=== PATIENT | female | born 1990 | race Caucasian/White ===

== ENCOUNTER 2017-09-11 20:13 | Emergency (ER) ==
[2017-09-11 20:19] VITALS: BP 122/71; TEMP 97.7; BMI 26.5
[2017-09-11] MEDS ORDERED: BENADRYL IM STA (20:36)
--- NOTE | 2017-09-11 20:40 | ED.PDOC ---
General ED Provider: Dr. JENN SALINAS Chief Complaint: Non-specific Complaint Stated Complaint: Patient states she smoked a whole joint of Methamphetamine to night now feels anxious. Denies any any chest pain. States she is tingling all over. Time Seen by Physician: 20:38 Mode of Arrival: Walk-In Information Source: Patient Exam Limitations: No limitations Primary [facility] Nursing and Triage Documentation Reviewed and Agree: Yes Reviewed sepsis parameters & appropriate labs ordered?: Yes System Inflammatory Response Syndrome: Not Applicable Sepsis Protocol: For patient's 13 years and over: Temp is 96.8 and below OR 101 and greater Pulse >90 BPM Resp >20/minute Acutely Altered Mental Status Are patient's symptoms suggestive of a new infection, such as: -Pneumonia -Skin, Soft Tissue -Endocarditis -UTI -Bone, Joint Infection -Implantable Device -Acute Abdominal Infection -Wound Infection -Meningitis -Blood Stream Catheter Infection -Unknown System Inflammatory Response Syndrome: Not Applicable Review of Systems - Review Of Systems Constitutional: Reports: Diaphoresis, Weakness, Sweats Eyes: Reports: No symptoms Ears, Nose, Mouth, Throat: Reports: No symptoms Respiratory: Reports: No symptoms Cardiac: Reports: Chest pain GI: Reports: Nausea : Reports: No symptoms Musculoskeletal: Reports: No symptoms Skin: Reports: No symptoms Neurological: Reports: Anxiety, Emotional problems, Headache, Numbness Endocrine: Reports: No symptoms Hematologic/Lymphatic: Reports: No symptoms All Other Systems: Reviewed and Negative Past Medical History - Past Medical History Previously Healthy: Yes Endocrine: Reports: None Cardiovascular: Reports: None Respiratory: Reports: None Hematological: Reports: None Gastrointestinal: Reports: None Genitourinary: Reports: None Neuro/Psych: Reports: None Musculoskeletal: Reports: None Cancer: Reports: None Last Menstrual Period: [id number] - Surgical History General Surgical History: Reports: (x2 ), Appendectomy, Orthopedic (- LT ANKLE SURG) - Family History Family History: Reports: Unknown - Social History Smoking Status: Current every day smoker, Heavy tobacco smoker Hx Substance Use: Yes (METH) Alcohol Screening: None - Immunizations Tetanus Shot up to Date: No Physical Exam - Physical Exam Appearance: Ill-appearing Ill-appearing: Moderate Eyes: JEREMIE, EOMI, Conjunctiva clear ENT: Ears normal, Nose normal, Oropharynx normal Respiratory: Airway patent, Breath sounds clear, Breath sounds equal, Respirations nonlabored Cardiovascular: Tachycardia GI/: Soft, Nontender, No masses, Bowel sounds normal, No Organomegaly Musculoskeletal: Normal strength, ROM intact, No edema, No calf tenderness Skin: Warm, Dry, Normal color Neurological: Sensation intact, Motor intact, Reflexes intact, Cranial nerves intact, Alert, Oriented Psychiatric: Anxious Interpretation - EKG Interpretation Time of EKG #1: 21:34 Rate: Tachy Rhythm: Sinus Ectopy: None [place]: NL ST Segment: Normal Interpretation: sinus tachy Critical Care Note - Critical Care Note Total Time (mins): 0 Course - Course Hematology/Chemistry: 09/11/17 21:22 09/11/17 21:22 Orders, Labs, Meds: Lab Review 09/11/17 09/11/17 09/11/17 21:22 21:22 21:37 WBC 15.68 H RBC 4.26 Hgb 12.7 Hct 35.9 L MCV 84.3 MCH 29.8 MCHC 35.4 RDW Coeff of Sandro 13.4 Plt Count 416 Immature Gran % (Auto) 0.4 Neut % (Auto) 81.7 Lymph % (Auto) 9.4 L [place] % (Auto) 7.5 Eos % (Auto) 0.4 Baso % (Auto) 0.6 Immature Gran # (Auto) 0.1 Neut # 12.8 H Lymph # 1.5 [place] # 1.2 Eos # 0.1 Baso # 0.1 Sodium 140 Potassium 3.4 L Chloride 106 Carbon Dioxide 22 Anion Gap 15.4 BUN 15 Creatinine 0.92 Estimated GFR (MDRD) 73.00 BUN/Creatinine Ratio 16.30 Glucose 107 Calcium 10.1 Total Bilirubin 0.7 AST 21 ALT 18 Alkaline Phosphatase 59 Total Creatine Kinase 521 CK-MB (CK-2) 3.5 CK-MB (CK-2) % 0.52853 Troponin I < 0.0100 Total Protein 7.5 Albumin 4.0 Globulin 3.5 Albumin/Globulin Ratio 1.14 Urine Opiates Screen Negative Ur Oxycodone Screen Negative Urine Methadone Screen Negative Ur Propoxyphene Screen Negative Ur Barbiturates Screen Negative U Tricyclic Antidepress Negative Ur Phencyclidine Scrn Negative Ur Amphetamine Screen Positive U Methamphetamines Scrn Negative U Benzodiazepines Scrn Negative Urine Cocaine Screen Negative U Cannabinoids Screen Positive Orders Category Date Time Status EKG-(ED ONLY) Stat CARDIO 09/11/17 21:13 Completed CBC W/ AUTO DIFF Stat LAB 09/11/17 21:22 Completed COMPREHENSIVE METABOLIC PANEL Stat LAB 09/11/17 21:22 Completed CREATINE KINASE Stat LAB 09/11/17 21:22 Completed DRUG SCREEN, URINE, RAPID Stat LAB 09/11/17 21:37 Completed TROPONIN I Stat LAB 09/11/17 21:22 Completed Diphenhydramine Inj [Benadryl] MEDS 09/11/17 20:36 Discontinued 50 mg IM ONCE STA CHEST, 1V AP ONLY Stat RADS 09/11/17 21:13 Taken Medications Discontinued Medications Generic Name Dose Route Start Last Admin Trade Name Freq PRN Reason Stop Dose Admin Diphenhydramine HCl 50 mg 09/11/17 20:36 09/11/17 21:10 Benadryl IM 09/11/17 20:37 50 mg ONCE STA Administration Vital Signs: Temp Pulse Resp BP Pulse Ox 09/11/17 20:14 97.7 F 119 H 18 122/71 99 Departure - Departure Time of Disposition: 22:08 Disposition: ADMITTED INPATIENT Discharge Problem: Drug abuse, amphetamine type Instructions: Methamphetamine Abuse (ED), Polysubstance Abuse (ED) Condition: Stable Pt referred to PMD for follow-up: Yes IPMP verified?: No Additional Instructions: Stop using Drugs Take Atarax as needed for agitation and anxiety Prescriptions: Hydroxyzine HCl [Atarax] 25 mg PO TID PRN #25 tablet PRN Reason: Agitation Allergies/Adverse Reactions: Allergies morphine Allergy (Severe, Verified 09/11/17 21:38) lowered body temp Patient to notify drugstore Home Medications: Ambulatory Orders Hydroxyzine HCl [Atarax] 25 mg PO TID PRN #25 tablet 09/11/17 Disposition Discussed With: Patient, Family
--- NOTE | 2017-09-12 07:15 | DI ---
EXAM: Single AP view of the chest HISTORY: Chest pain. COMPARISON: Chest x-ray 01/11/2013 FINDINGS: Cardiomediastinal silhouette is unremarkable. There is no pneumothorax or pleural effusion . There is no consolidation, nodule or mass. The osseous structures are unremarkable. IMPRESSION: No acute cardiopulmonary process.
== END 2017-09-11 22:30 | disposition other institution (70) ==
LOC: ED 20:13
DX: F15.10 Other stimulant abuse, uncomplicated (principal); R07.9 Chest pain, unspecified; R53.1 Weakness; F41.9 Anxiety disorder, unspecified; F17.210 Nicotine dependence, cigarettes, uncomplicated
CPT/HCPCS: 36415; 80053; 80306; 82550; 82553; 84484; 85025; 93005; 93010; 96372; 99284

== ENCOUNTER 2017-09-14 20:36 | Emergency (ER) ==
[2017-09-14 20:37] VITALS: BMI 26.5
[2017-09-14 20:43] VITALS: BP 143/91; TEMP 98.5
[2017-09-14] MEDS ORDERED: TETRACAINE 0.5% UNIT-DOSE OP STA (20:48)
[2017-09-14] MEDS ORDERED: FLUORETS OP STA (20:48)
[2017-09-14] MEDS ORDERED: EYE-STREAM OP STA (20:48)
--- NOTE | 2017-09-14 20:51 | ED.PDOC ---
General ED Provider: Dr. JENN SALINAS Chief Complaint: Eye Problem Stated Complaint: Patient is a 27 year old female who comes to the ER with Right eye pain and itching. has been rubbing it and has caused it to be red and inflamed. Does not feel like there is a foreign body in it. Time Seen by Physician: 20:49 Mode of Arrival: Walk-In Information Source: Patient [facility] Care [facility] and Triage Documentation Reviewed and Agree: Yes Reviewed sepsis parameters & appropriate labs ordered?: No System Inflammatory Response Syndrome: Not Applicable Sepsis Protocol: For patient's 13 years and over: Temp is 96.8 and below OR 101 and greater Pulse >90 BPM Resp >20/minute Acutely Altered Mental Status Are patient's symptoms suggestive of a new infection, such as: -Pneumonia -Skin, Soft Tissue -Endocarditis -UTI -Bone, Joint Infection -Implantable Device -Acute Abdominal Infection -Wound Infection -Meningitis -Blood Stream Catheter Infection -Unknown System Inflammatory Response Syndrome: Not Applicable EENT Complaint Exam - Eye Complaint/Exam Onset/Duration: 20 min ago. Symptoms Are: Still present Timing: Constant Initial Severity: Moderate Current Severity: Moderate Location: Right Character: Reports: Dull, Throbbing Alleviating: Reports: None Associated Signs and Symptoms: Reports: Photophobia, Clear drainage Related History: Denies: Similar episode, Foreign body, Trauma, Glaucoma, Environmental, Meds used, Drops used Penetrating Injury Risk Factors: None Globe Rupture Risk Factors: None Acute Glaucoma Risk Factors: None Optic Artery Occlusion Risk Factors: None Visual Acuity Right Eye: 20/50 Visual Acuity Left Eye: 20/50 Visual Field: Normal Extraocular Movement: Normal Orbit Findings: Normal Globe Findings: Intact Lid Findings: Erythema Conjunctival Findings: Red Corneal Findings: Clear Fluorescein Uptake: No Fundi: Normal Slit Lamp Used: No Differential Diagnoses: Conjunctivitis Review of Systems - Review Of Systems Constitutional: Reports: No symptoms Ears, Nose, Mouth, Throat: Reports: Ear pain, Ear discharge Skin: Reports: Lesions Neurological: Reports: Anxiety All Other Systems: Reviewed and Negative Past Medical History - Past Medical History Previously Healthy: Yes Endocrine: Reports: None Cardiovascular: Reports: None Respiratory: Reports: None Hematological: Reports: None Gastrointestinal: Reports: None Genitourinary: Reports: None Neuro/Psych: Reports: None Musculoskeletal: Reports: None Cancer: Reports: None Last Menstrual Period: 09/05/17 - Surgical History General Surgical History: Reports: (x2 ), Appendectomy, Orthopedic (- LT ANKLE SURG) - Family History Family History: Reports: Unknown - Social History Smoking Status: Current every day smoker, Heavy tobacco smoker Hx Substance Use: Yes (METH) Alcohol Screening: None - Immunizations Tetanus Shot up to Date: No Physical Exam - Physical Exam Appearance: Ill-appearing, Well-nourished Ill-appearing: Mild Pain Distress: Moderate Eyes: JEREMIE, EOMI, Conjunctiva inflammed ENT: Oropharynx normal Respiratory: Airway patent, Breath sounds clear Skin: Warm Neurological: Sensation intact, Motor intact, Alert, Oriented Psychiatric: Anxious Critical Care Note - Critical Care Note Total Time (mins): 0 Course - Course Orders, Labs, Meds: Orders Category Date Time Status Balanced Salt Solution [Eye-Stream] MEDS 09/14/17 20:48 Stat 1 bottle OP ONCE STA Fluorescein Sodium [Fluorets] MEDS 09/14/17 20:48 Stat 1 strip OP ONCE STA Tetracaine HCl/Pf [Tetracaine 0.5% Unit-Dose] MEDS 09/14/17 20:48 Stat 2 drop OP ONCE STA Medications Discontinued Medications Generic Name Dose Route Start Last Admin Trade Name Freq PRN Reason Stop Dose Admin Eye Irrigation Solution 1 bottle 09/14/17 20:48 Eye-Stream OP 09/14/17 20:49 ONCE STA Fluorescein Sodium 1 strip 09/14/17 20:48 Fluorets OP 09/14/17 20:49 ONCE STA Tetracaine HCl 2 drop 09/14/17 20:48 Tetracaine 0.5% Unit-Dose OP 09/14/17 20:49 ONCE STA Vital Signs: Temp Pulse Resp BP Pulse Ox 09/14/17 20:37 98.5 F 119 H 20 143/91 H 97 Departure - Departure Time of Disposition: 21:22 Disposition: HOME SELF-CARE Discharge Problem: Conjunctivitis of right eye Qualifiers: Conjunctivitis type: acute Acute conjunctivitis type: unspecified Qualified Code(s): H10.31 - Unspecified acute conjunctivitis, right eye Instructions: Conjunctivitis (ED) Condition: Stable Pt referred to PMD for follow-up: Yes IPMP verified?: No Additional Instructions: Use eye ointment to the right eye Three times a day Follow up with PCP in 3 days Allergies/Adverse Reactions: Allergies morphine Allergy (Severe, Verified 09/14/17 20:39) lowered body temp Patient to notify drugstore Home Medications: Ambulatory Orders Hydroxyzine HCl [Atarax] 25 mg PO TID PRN #25 tablet 09/11/17 Disposition Discussed With: Patient, Family
[2017-09-14] MEDS ORDERED: NEO-POLYCIN OPTH OINT OP STA (21:07)
== END 2017-09-14 21:30 | disposition home or self-care (01) ==
LOC: ED 20:36
DX: H10.31 Unspecified acute conjunctivitis, right eye (principal)
CPT/HCPCS: 99282

== ENCOUNTER 2018-02-03 03:10 | Emergency (ER) ==
[2018-02-03 03:21] VITALS: BP 153/75; TEMP 98.6; BMI 26.3
[2018-02-03] MEDS ORDERED: EYE-STREAM OP STA (03:25)
[2018-02-03] MEDS ORDERED: TETRACAINE 0.5% UNIT-DOSE OP STA (03:25)
[2018-02-03] MEDS ORDERED: FLUORETS OP STA (03:25)
[2018-02-03] MEDS ORDERED: MOTRIN PO STA (03:42)
--- NOTE | 2018-02-03 03:47 | ED.PDOC ---
General ED Provider: Dr. JENN SALINAS Chief Complaint: Eye Problem Stated Complaint: Pateint states that a toy box fell on to her left periobital and nose bridge 1 hour ago. She had minor nose bleed that has stopped. Denies any loss of conciousness. Time Seen by Physician: 03:45 Mode of Arrival: Walk-In Information Source: Patient Exam Limitations: No limitations [facility] and T[facility] Documentation Reviewed and Agree: Yes Does patient meet sepsis criteria?: No System Inflammatory Response Syndrome: Not Applicable Sepsis Protocol: For patient's 13 years and over: Temp is 96.8 and below OR 101 and greater Pulse >90 BPM Resp >20/minute Acutely Altered Mental Status Are patient's symptoms suggestive of a new infection, such as: -Pneumonia -Skin, Soft Tissue -Endocarditis -UTI -Bone, Joint Infection -Implantable Device -Acute Abdominal Infection -Wound Infection -Meningitis -Blood Stream Catheter Infection -Unknown Trauma/Injury Complaint Exam - Facial Injury Complaint/Exam Location of Pain: Reports: Left, Cheek Mechanism of Injury: Reports: Trauma Onset/Duration: 1 hour ago Symptoms Are: Still present Onset of Pain: Reports: Immediate Initial Severity: Severe Current Severity: Moderate Location: Reports: Discrete (Left lower periobital area and bridge of nose ) Character: Reports: Aching, Throbbing Alleviating: Reports: None Aggravating: Reports: None Associated Signs and Symptoms: Reports: Swelling (mild ), Bruising Related History: Denies: Similar episode, Occupational injury, Recent dental work Related Surgical History: Reports: None Facial Findings: Present: Swelling Face Picture: 1 - contusion Differential Diagnoses: Contusion Review of Systems - Review Of Systems Constitutional: Reports: No symptoms Eyes: Reports: No symptoms Ears, Nose, Mouth, Throat: Reports: Epistaxis Respiratory: Reports: No symptoms Cardiac: Reports: No symptoms GI: Reports: No symptoms : Reports: No symptoms Musculoskeletal: Reports: No symptoms Skin: Reports: Bruising (on left face ) Neurological: Reports: No symptoms Endocrine: Reports: No symptoms Hematologic/Lymphatic: Reports: No symptoms All Other Systems: Reviewed and Negative Past Medical History - Past Medical History Previously Healthy: Yes Endocrine: Reports: None Cardiovascular: Reports: None Respiratory: Reports: None Hematological: Reports: None Gastrointestinal: Reports: None Genitourinary: Reports: None Neuro/Psych: Reports: None Musculoskeletal: Reports: None Cancer: Reports: None Last Menstrual Period: END OF DECEMBER - Surgical History General Surgical History: Reports: (x2 ), Appendectomy, Orthopedic (- LT ANKLE SURG) - Family History Family History: Reports: Unknown - Social History Smoking Status: Current every day smoker, Light tobacco smoker Hx Substance Use: Yes (METH) Alcohol Screening: None - Immunizations Tetanus Shot up to Date: Yes Physical Exam - Physical Exam Appearance: Well-appearing Pain Distress: Moderate Eyes: JEREMIE, EOMI ENT: Nose normal (with minor contusion and swelling ), Epistaxis (Dried blood ) Neck: Supple Respiratory: Airway patent, Breath sounds clear, Breath sounds equal, Respirations nonlabored Cardiovascular: Pulses normal, No rub, No murmur, Tachycardia Skin: Warm, Dry, Normal color Neurological: Cranial nerves intact, Alert, Oriented Psychiatric: Anxious Critical Care Note - Critical Care Note Total Time (mins): 0 Course - Course Orders, Labs, Meds: Orders Category Date Time Status Ice [ED APPLY ICE AFFECTED AREA] .ONCE EMERGENCY 02/03/18 03:43 Ordered Ibuprofen [Motrin] MEDS 02/03/18 03:42 Stat 800 mg PO ONCE STA Medications Discontinued Medications Generic Name Dose Route Start Last Admin Trade Name Freq PRN Reason Stop Dose Admin Ibuprofen 800 mg 02/03/18 03:42 Motrin PO 02/03/18 03:43 ONCE STA Vital Signs: Temp Pulse Resp BP Pulse Ox 02/03/18 03:12 98.6 F 114 H 20 153/75 H 98 Departure - Departure Time of Disposition: 03:47 Disposition: HOME SELF-CARE Discharge Problem: Contusion, Contusion of nose, initial encounter, Anterior epistaxis Instructions: Contusion in Adults (ED), Black Eye (ED) Condition: Stable Pt referred to PMD for follow-up: Yes IPMP verified?: No Additional Instructions: Take Motrin or Tylenol as needed for pain use ICE pace intermittently for 30 min at a time 4 times a day for swelling Prescriptions: Ibuprofen [Motrin] 600 mg PO Q6H PRN #20 tablet PRN Reason: Analgesia Allergies/Adverse Reactions: Allergies morphine Allergy (Severe, Verified 02/03/18 03:21) lowered body temp Patient to notify drugstore Home Medications: Ambulatory Orders Ibuprofen [Motrin] 600 mg PO Q6H PRN #20 tablet 02/03/18
== END 2018-02-03 04:00 | disposition home or self-care (01) ==
LOC: ED 03:10
DX: S00.33XA Contusion of nose, initial encounter (principal); S05.12XA Contusion of eyeball and orbital tissues, left eye, initial encounter; R04.0 Epistaxis; W22.8XXA Striking against or struck by other objects, initial encounter
CPT/HCPCS: 99282

== ENCOUNTER 2018-07-16 13:08 | Emergency (ER) ==
[2018-07-16 13:12] VITALS: BP 115/76; TEMP 98; BMI 27.5
--- NOTE | 2018-07-16 13:27 | ED.PDOC ---
General ED Provider: Dr. MOI LEWIS Chief Complaint: Tooth Problem Stated Complaint: dental pain , sore throay ear pain right side Time Seen by Physician: 13:19 (seen with ismael at all times ) Mode of Arrival: Walk-In Information Source: Patient Exam Limitations: No limitations [facility] Nursing and Triage Documentation Reviewed and Agree: Yes Does patient meet sepsis criteria?: No If yes, has appropriate treatment been initiated?: No System Inflammatory Response Syndrome: Not Applicable Sepsis Protocol: For patient's 13 years and over: Temp is 96.8 and below OR 101 and greater Pulse >90 BPM Resp >20/minute Acutely Altered Mental Status Are patient's symptoms suggestive of a new infection, such as: -Pneumonia -Skin, Soft Tissue -Endocarditis -UTI -Bone, Joint Infection -Implantable Device -Acute Abdominal Infection -Wound Infection -Meningitis -Blood Stream Catheter Infection -Unknown EENT Complaint Exam - Dental/Oral Complaint/Exam Mechanism of Injury: Unknown Onset/Duration: 1 day Symptoms Are: Still present Timing: Constant Initial Severity: Moderate Current Severity: Moderate Character: Reports: Aching, Throbbing Aggravating: Reports: None Alleviating: Reports: None Associated Signs and Symptoms: Denies: Swelling, Discharge, Fever, Foul odor, Foul taste in mouth Related History: Reports: Similar episode Cardiac Risk Factors: Reports: None Dental/Oral Surgical History: Reports: None Tooth Findings: Present: Gross caries (emerging wisdom tooth righ isded ) Cervical Lymphadenopathy Present: No Facial Swelling Present: No Bleeding Present: No Oropharynx Findings: Absent: Clots, Active bleeding Septal Hematoma: No Foreign Body Present: No Dysphagia Present: No Drooling Present: No Asymmetrical Tonsillar Swelling Present: No Uvula Midline: Yes Milli-tonsillar Fluctuence: No Trismus Present: No Palatal Petechiae Present: No Scarlatinaform Rash Present: No Lesions: Absent: Lip, Gums, Tongue, Buccal Mucosa, Pharynx Exanthem: Absent: Lip, Gums, Tongue, Buccal Mucosa, Pharynx Vesicles: Absent: Lip, Gums, Tongue, Buccal Mucosa, Pharynx Differential Diagnoses: Dental Caries, Other (wisdom tooth) Review of Systems - Review Of Systems Constitutional: Reports: No symptoms Eyes: Reports: No symptoms Ears, Nose, Mouth, Throat: Reports: Ear pain (right ), Throat pain Respiratory: Reports: No symptoms Cardiac: Reports: No symptoms GI: Reports: No symptoms : Reports: No symptoms Musculoskeletal: Reports: No symptoms Skin: Reports: No symptoms Neurological: Reports: No symptoms Endocrine: Reports: No symptoms Hematologic/Lymphatic: Reports: No symptoms All Other Systems: Reviewed and Negative Past Medical History - Past Medical History Previously Healthy: Yes Endocrine: Reports: None Cardiovascular: Reports: None Respiratory: Reports: None Hematological: Reports: None Gastrointestinal: Reports: None Genitourinary: Reports: None Neuro/Psych: Reports: None Musculoskeletal: Reports: None Cancer: Reports: None Last Menstrual Period: 3 weeks - Surgical History General Surgical History: Reports: (x2 ), Appendectomy, Orthopedic (- LT ANKLE SURG) - Family History Family History: Reports: Unknown - Social History Smoking Status: Current every day smoker, Light tobacco smoker Hx Substance Use: Yes (METH) Alcohol Screening: None Physical Exam - Physical Exam Appearance: Well-appearing, No pain distress, Well-nourished Eyes: JEREMIE, EOMI, Conjunctiva clear ENT: Ears normal, Nose normal, Oropharynx normal Respiratory: Airway patent, Breath sounds clear, Breath sounds equal, Respirations nonlabored Cardiovascular: RRR, Pulses normal, No rub, No murmur GI/: Soft, Nontender, No masses, Bowel sounds normal, No Organomegaly Musculoskeletal: Normal strength, ROM intact, No edema, No calf tenderness Skin: Warm, Dry, Normal color Neurological: Sensation intact, Motor intact, Reflexes intact, Cranial nerves intact, Alert, Oriented Psychiatric: Affect appropriate, Mood appropriate Critical Care Note - Critical Care Note Total Time (mins): 0 Course - Course Vital Signs: Temp Pulse Resp BP Pulse Ox 07/16/18 13:09 98.0 F 100 H 20 115/76 98 Departure - Departure Time of Disposition: 13:27 Disposition: HOME SELF-CARE Discharge Problem: Toothache, Pain, dental Instructions: Earache (ED) Condition: Good Pt referred to PMD for follow-up: Yes IPMP verified?: No Additional Instructions: Please call your Family Physician as soon as possible to schedule a follow-up appointment. Allergies/Adverse Reactions: Allergies morphine Allergy (Severe, Verified 07/16/18 13:13) lowered body temp Patient to notify drugstore Home Medications: Ambulatory Orders 1 [No Reported Medications] 07/16/18
== END 2018-07-16 13:36 | disposition home or self-care (01) ==
LOC: ED 13:08
DX: K08.89 Other specified disorders of teeth and supporting structures (principal); K02.7 Dental root caries; H92.01 Otalgia, right ear; J02.9 Acute pharyngitis, unspecified; F17.210 Nicotine dependence, cigarettes, uncomplicated
CPT/HCPCS: 99282

== ENCOUNTER 2018-09-15 23:28 | Emergency (ER) ==
[2018-09-15 23:39] VITALS: TEMP 99.2; BMI 26.5
--- NOTE | 2018-09-16 00:02 | ED.PDOC ---
General ED Provider: Dr. MANGO MANZO Chief Complaint: Non-specific Complaint Stated Complaint: concern about glass chip in drinking watyer from glass Time Seen by Physician: 01:15 Mode of Arrival: Walk-In Information Source: Patient Exam Limitations: No limitations Primary Care Provider: ROYA SANTILLAN Nursing and Triage Documentation Reviewed and Agree: Yes Does patient meet sepsis criteria?: No System Inflammatory Response Syndrome: Not Applicable Sepsis Protocol: For patient's 13 years and over: Temp is 96.8 and below OR 101 and greater Pulse >90 BPM Resp >20/minute Acutely Altered Mental Status Are patient's symptoms suggestive of a new infection, such as: -Pneumonia -Skin, Soft Tissue -Endocarditis -UTI -Bone, Joint Infection -Implantable Device -Acute Abdominal Infection -Wound Infection -Meningitis -Blood Stream Catheter Infection -Unknown GI Complaint Exam - Abdominal Pain Complaint/Exam Duration: tonight Symptoms Are: Resolved Timing: Intermittent Initial Severity: Mild Current Severity: Mild Character: Reports: Unable to describe Aggravating: Reports: Food Alleviating: Reports: Rest Associated Signs and Symptoms: Reports: Sore throat Review of Systems - Review Of Systems Constitutional: Reports: No symptoms Eyes: Reports: No symptoms Ears, Nose, Mouth, Throat: Reports: No symptoms Respiratory: Reports: No symptoms Cardiac: Reports: No symptoms GI: Reports: No symptoms : Reports: No symptoms Musculoskeletal: Reports: No symptoms Skin: Reports: No symptoms Neurological: Reports: No symptoms Endocrine: Reports: No symptoms Hematologic/Lymphatic: Reports: No symptoms All Other Systems: Reviewed and Negative Past Medical History - Past Medical History Previously Healthy: Yes Endocrine: Reports: None Cardiovascular: Reports: None Respiratory: Reports: None Hematological: Reports: None Gastrointestinal: Reports: None Genitourinary: Reports: None Neuro/Psych: Reports: None Musculoskeletal: Reports: None Cancer: Reports: None Last Menstrual Period: now - Surgical History General Surgical History: Reports: (x2 ), Appendectomy, Orthopedic (- LT ANKLE SURG) - Family History Family History: Reports: Unknown - Social History Smoking Status: Current every day smoker, Light tobacco smoker Hx Substance Use: Yes (METH) Alcohol Screening: None - Immunizations Tetanus Shot up to Date: Yes Physical Exam - Physical Exam Appearance: No pain distress Ill-appearing: Mild Pain Distress: None Eyes: JEREM[place] ENT: Ears normal Neck: Supple Respiratory: Airway patent Cardiovascular: RRR GI/: Soft Musculoskeletal: Normal strength Skin: Warm Neurological: Sensation intact Interpretation - Radiology Interpretation Radiology Interpretation By: Radiologist Radiology Results: Negative Exam Interpreted: CT Scan Xray Comments: nrgative for radioopaque FB as per reort. Re-Evaluation - Re-Evaluation Time of Re-Evaluation: 01:09 Status: Unchanged Vital Signs Stable: Yes Pain Level: none Appearance: NAD Lungs: Clear Skin: Warm and Dry Neuro: Alert and Oriented X3 CV: RRR Critical Care Note - Critical Care Note Total Time (mins): 0 Course - Course Orders, Labs, Meds: Orders Category Date Time Status CT SOFT TISSUE NECK W/O CONTR Stat RADS 09/16/18 00:03 Completed Vital Signs: Temp Pulse Resp BP Pulse Ox 09/16/18 01:01 87 18 131/86 98 09/15/18 23:29 99.2 F 117 H 20 132/75 97 Departure - Departure Time of Disposition: 01:11 Disposition: HOME SELF-CARE Discharge Problem: Foreign body in esophagus Instructions: Upper Endoscopy (DC) Condition: Good Pt referred to PMD for follow-up: Yes (f/u with ER in not beter 1-2 days) IPMP verified?: No Allergies/Adverse Reactions: Allergies morphine Allergy (Severe, Verified 09/15/18 23:39) lowered body temp Patient to notify drugstore Home Medications: Ambulatory Orders 1 [No Reported Medications] 07/16/18 Disposition Discussed With: Patient, Family
--- NOTE | 2018-09-16 00:51 | CT ---
EXAM: CT soft tissue neck without contrast. HISTORY: Possible piece of glass lodged in lower pharynx/upper. PROCEDURE: Contiguous axial CT images of the neck without contrast with coronal and sagittal reforma ts. FINDINGS: The parotid glands, submandibular glands and thyroid gland are normal in appearance. The pharynx, larynx and trachea are normal in appearance. The epiglottis and prevertebral soft tissues a re normal in appearance. No evidence of a radiopaque foreign body. The bones and soft tissues are u nremarkable. The lung apices are normal in appearance. Impression: Negative CT soft tissue neck as described.
[2018-09-16 01:02] VITALS: BP 131/86
== END 2018-09-16 01:20 | disposition home or self-care (01) ==
LOC: ED 23:28
DX: T18.198A Other foreign object in esophagus causing other injury, initial encounter (principal); F17.210 Nicotine dependence, cigarettes, uncomplicated
CPT/HCPCS: 99282